=== PATIENT | male | born 1995 | race Two or more races ===

== ENCOUNTER 2022-12-23 20:29 | Inpatient (IN) | payer BC, OTHER ==
[~2022-12-23] VITALS: Ht 177.8 cm; Wt 120.5 kg
[2022-12-23] MEDS ORDERED: MORPHINE SULFATE 4 MG/ML SYR/VIAL IV ONE (20:45)
[2022-12-23] MEDS ORDERED: ONDANSETRON HCL 4 MG/2 ML VIAL IV ONE (20:45)
[2022-12-23 21:58] LABS: Basophils # (auto) 0 10 ^3/uL (0-0.2); Basophils % (auto) 0.2 % (0.0-2.0); Eosinophils # (auto) 0 10 ^3/uL (0-0.8); Eosinophils % (auto) 0.3 % (0.0-7.0); Hematocrit 45.5 % (41.0-53.0); Hemoglobin 15.1 g/dL (13.5-17.5); Lymphocytes # (auto) 1.6 10 ^3/uL (0.4-5.4); Lymphocytes % (auto) 8.2 % (10.0-50.0); Mean Corpuscular Hgb Conc. 33.2 g/dL (32.0-36.0); Mean Corpuscular Volume 87.3 fL (80.0-100.0); Monocytes # (auto) 1.3 10 ^3/uL (0-1.3); Monocytes % (auto) 6.4 % (0.0-12.0); Neutrophils # (auto) 16.7 10 ^3/uL (1.6-8.6); Neutrophils % (auto) 84.9 % (37.0-80.0); Nucleated Red Blood Cells % 0.2 %; Red Blood Cells 5.21 10^6/uL (4.5-5.90); White Blood Cell 19.6 10^3/uL (4.4-10.8)
[2022-12-23 22:24] LABS: Albumin 4.1 g/dL (3.4-5.0); BUN/Creatinine Ratio 11.3 (10.0-20.0); Calcium 9.1 mg/dL (8.5-10.1); Potassium 3.3 mmol/L (3.5-5.1)
[2022-12-23 22:27] LABS: Bilirubin, Total 0.6 mg/dL (0.2-1.0); Total Protein 7.5 g/dL (6.4-8.2)
[2022-12-24] MEDS ORDERED: MORPHINE SULFATE 4 MG/ML SYR/VIAL IV ONE (00:15)
[2022-12-24] MEDS ORDERED: ONDANSETRON HCL 4 MG/2 ML VIAL IV ONE (00:15)
[2022-12-24] MEDS ORDERED: ACETAMINOPHEN 325 MG TAB PO PRN (01:00)
[2022-12-24] MEDS ORDERED: TEMAZEPAM 15 MG CAP PO PRN (01:00)
[2022-12-24] MEDS ORDERED: ONDANSETRON HCL 4 MG/2 ML VIAL IV PRN ×2 (01:00→14:00)
[2022-12-24 01:37] LABS: Basophils # (auto) 0 10 ^3/uL (0-0.2); Basophils % (auto) 0.2 % (0.0-2.0); Eosinophils # (auto) 0 10 ^3/uL (0-0.8); Hematocrit 41.3 % (41.0-53.0); Hemoglobin 14.2 g/dL (13.5-17.5); Lymphocytes # (auto) 1.2 10 ^3/uL (0.4-5.4); Lymphocytes % (auto) 8.7 % (10.0-50.0); Mean Corpuscular Hemoglobin 29.8 pg (28.0-32.0); Mean Corpuscular Hgb Conc. 34.4 g/dL (32.0-36.0); Mean Corpuscular Volume 86.7 fL (80.0-100.0); Monocytes # (auto) 0.7 10 ^3/uL (0-1.3); Monocytes % (auto) 4.8 % (0.0-12.0); Neutrophils # (auto) 12.4 10 ^3/uL (1.6-8.6); Neutrophils % (auto) 86.3 % (37.0-80.0); Red Blood Cells 4.76 10^6/uL (4.5-5.90); White Blood Cell 14.4 10^3/uL (4.4-10.8)
[2022-12-24 01:59] LABS: INR 1.03 (0.9-1.15)
[2022-12-24] MEDS: MORPHINE SULFATE INJ 2 MG/ml SYRG IV PRN ×2 (04:23→21:39)
[2022-12-24] MEDS: HYDROcodone-ACET 5/325MG TAB PO PRN (07:16)
[2022-12-24 09:21] VITALS: BP 107/45
[2022-12-24] MEDS ORDERED: ceFAZolin 1GM/50ML 100 ML IV ONE (09:51)
[2022-12-24] MEDS: PANTOPRAZOLE 40 MG TAB PO SCH (10:00)
[2022-12-24] MEDS ORDERED: DexAMETHasone SOD PHOS 4 MG/1ML SDV INJ ONE (10:46)
[2022-12-24] MEDS ORDERED: BUPIVACAINE HCL 50 ML ONE (10:46)
[2022-12-24] MEDS ORDERED: LIDOCAINE W/ EPINEPHRINE 2% INJ 20ML VIAL ONE (10:46)
[2022-12-24] MEDS ORDERED: MIDAZOLAM HCL 2MG/2ML 2ml VIAL (1mg/ml) IV PRN (14:00)
[2022-12-24] MEDS ORDERED: ePHEDrine SULFATE 50 MG/ML AMP IV PRN (14:00)
[2022-12-24] MEDS ORDERED: LABETALOL HCL 5 MG/ML 4ML SYRINGE IV PRN (14:00)
[2022-12-24] MEDS ORDERED: MORPHINE SULFATE 4 MG/ML SYR/VIAL IV PRN (14:00)
[2022-12-24] MEDS: SODIUM CHLOR 0.9% PF (SALINE LOCK) 10ML VIAL/SYR IV SCH ×2 (14:00→22:00)
[2022-12-24] MEDS ORDERED: ceFAZolin 2 GM/D5W100ml 100 ML IV SCH (14:00)
[2022-12-24] MEDS: HYDROmorphone HCL 2 MG/ML VL/or syr IV PRN ×4 (14:40→15:10)
[2022-12-24] MEDS: LACTATED RINGER'S 1,000 ML IV SCH (16:00)
[2022-12-24] MEDS: HYDROcodone-ACET 10/325MG TAB PO PRN (16:26)
[2022-12-24 16:55] VITALS: BP 115/82
[2022-12-24] MEDS: ceFAZolin 2 GM/D5W100ml 100 ML IV SCH (18:52)
[2022-12-24 22:00] VITALS: BP 120/57
[2022-12-25] VITALS (7 sets, daily range): BP systolic 103–107; BP diastolic 44–55
[2022-12-25] MEDS: ceFAZolin 2 GM/D5W100ml 100 ML IV SCH (01:44)
[2022-12-25 05:51] LABS: Basophils # (auto) 0 10 ^3/uL (0-0.2); Basophils % (auto) 0.1 % (0.0-2.0); Eosinophils # (auto) 0 10 ^3/uL (0-0.8); Eosinophils % (auto) 0.1 % (0.0-7.0); Lymphocytes # (auto) 1.5 10 ^3/uL (0.4-5.4); Lymphocytes % (auto) 14.4 % (10.0-50.0); Mean Corpuscular Hemoglobin 30.6 pg (28.0-32.0); Mean Corpuscular Hgb Conc. 35.7 g/dL (32.0-36.0); Mean Corpuscular Volume 85.5 fL (80.0-100.0); Monocytes % (auto) 9.9 % (0.0-12.0); Neutrophils # (auto) 7.8 10 ^3/uL (1.6-8.6); Neutrophils % (auto) 75.5 % (37.0-80.0); Nucleated Red Blood Cells % 0.1 %; Red Blood Cells 3.28 10^6/uL (4.5-5.90); Red Cell Distribution Width 13.3 % (11.8-14.3); White Blood Cell 10.3 10^3/uL (4.4-10.8)
[2022-12-25] MEDS: LACTATED RINGER'S 1,000 ML IV SCH ×3 (06:19→20:00)
[2022-12-25] MEDS: SODIUM CHLOR 0.9% PF (SALINE LOCK) 10ML VIAL/SYR IV SCH ×3 (06:19→23:08)
[2022-12-25 07:20] LABS: Calcium 8.1 mg/dL (8.5-10.1); Potassium 3.9 mmol/L (3.5-5.1)
[2022-12-25] MEDS: MORPHINE SULFATE INJ 2 MG/ml SYRG IV PRN ×2 (08:29→14:55)
[2022-12-25] MEDS: APIXABAN 2.5 MG TAB PO SCH ×2 (11:00→23:02)
[2022-12-25] MEDS: PANTOPRAZOLE 40 MG TAB PO SCH (11:00)
[2022-12-25] MEDS: HYDROcodone-ACET 10/325MG TAB PO PRN ×2 (17:12→23:08)
[2022-12-26 05:20] VITALS: BP 107/51
[2022-12-26 06:33] LABS: Basophils # (auto) 0 10 ^3/uL (0-0.2); Basophils % (auto) 0.5 % (0.0-2.0); Eosinophils # (auto) 0 10 ^3/uL (0-0.8); Eosinophils % (auto) 0.5 % (0.0-7.0); Hematocrit 25.7 % (41.0-53.0); Lymphocytes # (auto) 2.7 10 ^3/uL (0.4-5.4); Lymphocytes % (auto) 30.5 % (10.0-50.0); Mean Corpuscular Hemoglobin 30.7 pg (28.0-32.0); Mean Corpuscular Hgb Conc. 35.3 g/dL (32.0-36.0); Mean Corpuscular Volume 87.1 fL (80.0-100.0); Monocytes # (auto) 0.8 10 ^3/uL (0-1.3); Monocytes % (auto) 9.5 % (0.0-12.0); Neutrophils # (auto) 5.2 10 ^3/uL (1.6-8.6); Nucleated Red Blood Cells % 0.1 %; Red Blood Cells 2.94 10^6/uL (4.5-5.90); Red Cell Distribution Width 13.1 % (11.8-14.3); White Blood Cell 8.8 10^3/uL (4.4-10.8)
[2022-12-26] MEDS: SODIUM CHLOR 0.9% PF (SALINE LOCK) 10ML VIAL/SYR IV SCH ×3 (06:37→21:47)
[2022-12-26] MEDS: LACTATED RINGER'S 1,000 ML IV SCH ×2 (06:37→16:00)
[2022-12-26 08:00] VITALS: BP 109/54
[2022-12-26 09:00] VITALS: BP 109/54
[2022-12-26] MEDS: APIXABAN 2.5 MG TAB PO SCH ×2 (09:08→21:47)
[2022-12-26] MEDS: PANTOPRAZOLE 40 MG TAB PO SCH (09:08)
[2022-12-26] MEDS: HYDROcodone-ACET 10/325MG TAB PO PRN ×3 (09:08→17:50)
[2022-12-26 12:54] VITALS: BP 95/47
[2022-12-26 17:00] VITALS: BP 107/63
[2022-12-26 22:00] VITALS: BP 100/57
[2022-12-27] MEDS: LACTATED RINGER'S 1,000 ML IV SCH ×2 (02:14→12:46)
[2022-12-27] MEDS: MORPHINE SULFATE INJ 2 MG/ml SYRG IV PRN (03:22)
[2022-12-27] MEDS: HYDROcodone-ACET 5/325MG TAB PO PRN (03:26)
[2022-12-27 05:00] VITALS: BP 105/58
[2022-12-27] MEDS: SODIUM CHLOR 0.9% PF (SALINE LOCK) 10ML VIAL/SYR IV SCH ×2 (05:39→14:51)
[2022-12-27 09:00] VITALS: BP 111/56
[2022-12-27] MEDS: HYDROcodone-ACET 10/325MG TAB PO PRN ×2 (09:12→13:14)
[2022-12-27] MEDS: PANTOPRAZOLE 40 MG TAB PO SCH (10:18)
[2022-12-27] MEDS: APIXABAN 2.5 MG TAB PO SCH (10:18)
[2022-12-27] MEDS ORDERED: HYDR-4798 PO (10:37)
[2022-12-27] MEDS ORDERED: APIX5TAB PO (10:37)
[2022-12-27 13:00] VITALS: BP 96/52
== END 2022-12-27 15:00 | disposition home or self-care (01) | DRG 482 ==
LOC: EDBD 20:29 → ER 20:29 → OVERFLOW 12-24 00:53 → CENTRAL 12-24 11:53
PROVIDERS: ADMIT Nurse Practitioner; ATTEND Family Medicine
PROC: 0QS636Z Reposition Right Upper Femur with Intramedullary Internal Fixation Device, Percutaneous Approach (ICD-10-PCS; principal; 2022-12-24 12:22)
DX: S72.353A Displaced comminuted fracture of shaft of unspecified femur, initial encounter for closed fracture (principal); D72.829 Elevated white blood cell count, unspecified; W18.39XA Other fall on same level, initial encounter; J45.909 Unspecified asthma, uncomplicated; Z79.01 Long term (current) use of anticoagulants; Y93.89 Activity, other specified; Y92.89 Other specified places as the place of occurrence of the external cause; Y99.8 Other external cause status
CPT/HCPCS: 36415; 76000; 80048; 80053; 85025; 85610; 85730; 86850; 86900; 86901; 96374; 96375; 97110; 97116; 97163; 97530; G0378; J0690; J1100; J2405; J3490